=== PATIENT | female | born 1985 | race Two or more races ===

== ENCOUNTER 2018-09-13 07:30 | Inpatient (IN) | payer BC ==
[~2018-09-13] VITALS: Ht 172.7 cm; Wt 94.8 kg
[2018-09-24] MEDS ORDERED: NONE PER PT (09:37)
[2018-09-24 09:57] LABS: BASOPHILS # (AUTO) 0.02 x10^3/uL (0-0.1); BASOPHILS % (AUTO) 1 % (0-1); EOSINOPHILS # (AUTO) 0.12 x10^3/uL (0-0.4); EOSINOPHILS % (AUTO) 3 % (1-7); LYMPHOCYTES # (AUTO) 1.24 x10^3/uL (1-3.4); LYMPHOCYTES % (AUTO) 29 % (22-44); MD NO; MEAN CORPUSCULAR HEMOGLOBIN 31.9 pg (27.0-34.8); MEAN CORPUSCULAR HGB CONC 34.5 g/dL (32.4-35.8); MEAN CORPUSCULAR VOLUME 92.6 fL (80-100); MEAN PLATELET VOLUME 8.4 fL (7.4-10.4); MONOCYTES # (AUTO) 0.31 x10^3/uL (0.2-0.8); MONOCYTES % (AUTO) 7 % (2-9); NEUTROPHILS # (AUTO) 2.53 x10^3/uL (1.8-6.8); NEUTROPHILS % (AUTO) 60 % (42-75); PLATELET COUNT 326 x10^3/uL (130-400); RED BLOOD COUNT 4.18 x10^6/uL (3.82-5.3); RED CELL DISTRIBUTION WIDTH 11.8 % (9.6-15.2)
[2018-09-24 10:07] LABS: ALANINE AMINOTRANSFERASE 18 U/L (12-78); ALBUMIN 3.6 g/dL (3.4-5.0); ALKALINE PHOSPHATASE 76 U/L (45-117); ANION GAP 6 mmol/L (5-15); BILIRUBIN,TOTAL 0.7 mg/dL (0.2-1.0); CHLORIDE 110 mmol/L (98-107); CREATININE 0.65 mg/dL (0.55-1.02); TOTAL PROTEIN 7.3 g/dL (6.4-8.2)
[2018-09-26] MEDS ORDERED: LACTATED RINGERS 1,000 ML IV SCH (06:10)
[2018-09-26] MEDS ORDERED: SCOPOLAMINE PATCH, 1.5MG PATCH.TD72 TD ONE (07:00)
[2018-09-26] MEDS ORDERED: GABAPENTIN 300 MG CAPSULE PO ONE (07:00)
[2018-09-26] MEDS ORDERED: FLUORESCEIN SODIUM 500 MG/5 ML ONE (07:00)
[2018-09-26] MEDS ORDERED: FAMOTIDINE 20 MG TABLET PO ONE (07:00)
[2018-09-26] MEDS ORDERED: OXYcodone IR 5MG TABLET PO ONE (07:00)
[2018-09-26] MEDS ORDERED: PROPOFOL 10 MG/ML, 20ML ONE (07:11)
[2018-09-26] MEDS ORDERED: DEXAMETHASONE 4 MG/ML, 1ML ONE (07:11)
[2018-09-26] MEDS ORDERED: ROCURONIUM 10MG/ML,5ML ONE (07:11)
[2018-09-26] MEDS ORDERED: LIDOCAINE 2% 100MG/5ML SYRINGE ONE (07:11)
[2018-09-26] MEDS ORDERED: GLYCOPYRROLATE 0.2MG/1ML, 5ML ONE (07:11)
[2018-09-26] MEDS ORDERED: FENTANYL PF 250 MCG/5ML ONE (07:12)
[2018-09-26] MEDS ORDERED: MIDAZOLAM 1 MG/ML, 2ML ONE ×2 (07:12→09:11)
[2018-09-26] MEDS ORDERED: CEFAZOLIN 1,000 MG ONE (07:14)
[2018-09-26] MEDS ORDERED: PROCHLORPERAZINE 5 MG/ML, 2ML IV PRN (07:30)
[2018-09-26] MEDS ORDERED: hydrALAzine 20 MG/ML, 1ML IV PRN (07:30)
[2018-09-26] MEDS ORDERED: ONDANSETRON 2MG/ML, 2ML IV PRN ×2 (07:30→11:30)
[2018-09-26] MEDS ORDERED: MORPHINE SULFATE 4 MG/ML, 1ML IVPush PRN (07:30)
[2018-09-26] MEDS ORDERED: MIDAZOLAM 1 MG/ML, 2ML IV PRN (07:30)
[2018-09-26] MEDS ORDERED: KETOROLAC 30 MG/1 ML IV PRN (07:30)
[2018-09-26] MEDS ORDERED: OXYcodone 5 MG/5 ML ORAL.SOL UDC PO PRN (07:30)
[2018-09-26] MEDS ORDERED: METOCLOPRAMIDE 5 MG/ML, 2ML IV PRN (07:30)
[2018-09-26] MEDS ORDERED: LABETALOL 5MG/ML, 20ML IV PRN (07:30)
[2018-09-26] MEDS ORDERED: EPHEDRINE 50 MG/ML, 1ML IVPush PRN (07:30)
[2018-09-26] MEDS ORDERED: ALBUTEROL/IPRATROPIUM 2.5MG/0.5MG, 3 ML NPPB PRN (07:30)
[2018-09-26] MEDS ORDERED: MEPERIDINE/PF 25MG/0.5ML IVPush PRN (07:30)
[2018-09-26] MEDS ORDERED: EPHEDRINE 50 MG/ML, 1ML IM PRN (07:30)
[2018-09-26] MEDS ORDERED: OXYTOCIN 10 UNITS/ML, 1ML ONE (08:00)
[2018-09-26] MEDS ORDERED: VASOPRESSIN 20 UNIT/ML, 1ML ONE (08:02)
[2018-09-26] MEDS ORDERED: ONDANSETRON 2MG/ML, 2ML ONE (08:43)
[2018-09-26] MEDS: HYDROmorphone 2 MG/ML, 1ML IVPush PRN ×2 (09:56→10:05)
[2018-09-26] MEDS ORDERED: OXYcodone 5 MG/5 ML ORAL.SOL UDC ONE (09:57)
[2018-09-26] MEDS ORDERED: FENTANYL PF 100 MCG/2ML ONE (09:57)
[2018-09-26] MEDS ORDERED: HYDROmorphone 2 MG/ML, 1ML ONE (09:57)
[2018-09-26] MEDS: FENTANYL PF 100 MCG/2ML IV PRN ×2 (10:04→10:13)
[2018-09-26] MEDS ORDERED: KETOROLAC 30 MG/1 ML ONE ×2 (10:09→15:58)
[2018-09-26] MEDS ORDERED: MEPERIDINE/PF 25MG/ML,1ML ONE (10:19)
[2018-09-26 11:10] VITALS: BP 120/76
[2018-09-26] MEDS ORDERED: morphine SULFATE 10 MG/ML, 1ML IV PRN (11:30)
[2018-09-26] MEDS ORDERED: ACETAMINOPHEN 325 MG TABLET PO PRN (11:30)
[2018-09-26] MEDS ORDERED: BISACODYL 10 MG SUPP PR PRN (11:30)
[2018-09-26] MEDS ORDERED: D5%-LACTATED RINGERS 1,000 ML IV SCH (11:30)
[2018-09-26] MEDS ORDERED: ACETAMINOPHEN 650 MG SUPP PR PRN (11:30)
[2018-09-26 14:34] VITALS: BP 106/53
[2018-09-26 14:49] LABS: MD YES; MEAN CORPUSCULAR HEMOGLOBIN 31.3 pg (27.0-34.8); MEAN CORPUSCULAR HGB CONC 33.7 g/dL (32.4-35.8); MEAN CORPUSCULAR VOLUME 92.7 fL (80-100); MEAN PLATELET VOLUME 8.5 fL (7.4-10.4); PLATELET COUNT 315 x10^3/uL (130-400); RED CELL DISTRIBUTION WIDTH 12.3 % (9.6-15.2)
[2018-09-26 14:54] LABS: <PLATELET ESTIMATE> ADEQUATE; <PLT MORPHOLOGY> NORMAL PLT MORPH; <RBC MORPHOLOGY> NORMAL; BAND#(MANUAL) 0.81 x10^3/uL; BANDS%(MANUAL) 6 % (0-7); LYMPH#(MANUAL) 0.14 x10^3/uL (1-3.4); LYMPHS% (MANUAL) 1 % (22-44); MONOS#(MANUAL) 0.27 x10^3/uL (0.3-2.7); MONOS% (MANUAL) 2 % (2-9); SEG#(MANUAL) 12.29 x10^3/uL (1.8-6.8); SEGS% (MANUAL) 91 % (42-75)
[2018-09-26] MEDS ORDERED: IBUPROFEN 600 MG TABLET PO SCH (16:00)
[2018-09-26] MEDS: SIMETHICONE 80 MG CHEW TAB PO SCH ×2 (16:01→20:14)
[2018-09-26] MEDS: KETOROLAC 30 MG/1 ML IVPush SCH ×2 (16:01→21:58)
[2018-09-26 19:12] VITALS: BP 102/63
[2018-09-26] MEDS: DOCUSATE 100 MG CAPSULE PO SCH (20:14)
[2018-09-26] MEDS: SENNA/DOCUSATE TABLET PO SCH (20:14)
[2018-09-26] MEDS ORDERED: ZOLPIDEM 5MG TABLET PO PRN (21:00)
[2018-09-26 23:57] VITALS: BP 102/63
[2018-09-27 00:47] VITALS: BP 113/63
[2018-09-27 03:37] LABS: BASOPHILS # (AUTO) 0.03 x10^3/uL (0-0.1); BASOPHILS % (AUTO) 0 % (0-1); EOSINOPHILS % (AUTO) 0 % (1-7); LYMPHOCYTES # (AUTO) 1.26 x10^3/uL (1-3.4); LYMPHOCYTES % (AUTO) 12 % (22-44); MD NO; MEAN CORPUSCULAR HEMOGLOBIN 31.2 pg (27.0-34.8); MEAN CORPUSCULAR HGB CONC 33.5 g/dL (32.4-35.8); MEAN CORPUSCULAR VOLUME 93.2 fL (80-100); MEAN PLATELET VOLUME 8.4 fL (7.4-10.4); MONOCYTES # (AUTO) 0.81 x10^3/uL (0.2-0.8); MONOCYTES % (AUTO) 8 % (2-9); NEUTROPHILS # (AUTO) 8.69 x10^3/uL (1.8-6.8); NEUTROPHILS % (AUTO) 81 % (42-75); PLATELET COUNT 282 x10^3/uL (130-400); RED BLOOD COUNT 3.71 x10^6/uL (3.82-5.3); RED CELL DISTRIBUTION WIDTH 12.2 % (9.6-15.2)
[2018-09-27] MEDS: KETOROLAC 30 MG/1 ML IVPush SCH ×2 (04:02→09:36)
[2018-09-27 04:09] VITALS: BP 104/66
[2018-09-27 04:14] LABS: ANION GAP 7 mmol/L (5-15); CHLORIDE 109 mmol/L (98-107)
[2018-09-27] MEDS: OXYcodone/APAP 5/325MG TABLET PO PRN ×3 (05:15→20:38)
[2018-09-27 09:34] VITALS: BP 104/63
[2018-09-27] MEDS: DOCUSATE 100 MG CAPSULE PO SCH ×2 (09:36→20:38)
[2018-09-27] MEDS: SIMETHICONE 80 MG CHEW TAB PO SCH ×3 (09:36→20:38)
[2018-09-27] MEDS: D5%-LACTATED RINGERS 1,000 ML IV SCH ×2 (11:50→19:30)
[2018-09-27 13:42] VITALS: BP 101/60
[2018-09-27] MEDS: IBUPROFEN 600 MG TABLET PO SCH ×2 (17:57→20:38)
[2018-09-27 18:50] VITALS: BP 103/61
[2018-09-27] MEDS ORDERED: IBUP-1222 PO (20:14)
[2018-09-27] MEDS ORDERED: OXYC-302 PO (20:14)
[2018-09-27] MEDS ORDERED: DOCU-131 PO (20:16)
[2018-09-27] MEDS: SENNA/DOCUSATE TABLET PO SCH (20:38)
[2018-09-27 21:18] VITALS: BP 115/72
== END 2018-09-27 21:30 | disposition home or self-care (01) | DRG 743 ==
LOC: ORIP 09-26 05:39 → EDSTATUS 09-26 07:30 → 4NOR 09-26 11:05
PROVIDERS: ADMIT Obstetrics & Gynecology; ATTEND Obstetrics & Gynecology
PROC: 0UB50ZZ Excision of Right Fallopian Tube, Open Approach (ICD-10-PCS; 2018-09-26)
PROC: 0UB90ZZ Excision of Uterus, Open Approach (ICD-10-PCS; principal; 2018-09-26 07:30)
DX: D25.9 Leiomyoma of uterus, unspecified (principal); N85.4 Malposition of uterus; Z87.59 Personal history of other complications of pregnancy, childbirth and the puerperium; N83.8 Other noninflammatory disorders of ovary, fallopian tube and broad ligament; N83.291 Other ovarian cyst, right side
CPT/HCPCS: 36415; J7121; 80048; 80053; 84703; 85025; 88305; 93005; G0378; J0690; J1100; J1170; J1885; J2175; J2250; J2405; J2704; J3010; C1765; J2590; J7120

== ENCOUNTER → 2020-04-30 | Outpatient (CLI) | payer BC ==
[~2020-04-30] MED LIST: DENIES; DOCU-131 PO; IBUP-1222 PO; NONE PER PT; OXYC-302 PO
== END | disposition home or self-care (01) ==
LOC: RAD 17:14
PROVIDERS: ATTEND Obstetrics & Gynecology
DX: O00.90 Unspecified ectopic pregnancy without intrauterine pregnancy (principal); O34.80 Maternal care for other abnormalities of pelvic organs, unspecified trimester; N83.202 Unspecified ovarian cyst, left side
CPT/HCPCS: 76801

== ENCOUNTER 2020-05-01 13:30 | Day surgery (SDC) | payer BC ==
[~2020-05-01] VITALS: Ht 172.7 cm; Wt 88.7 kg
[~2020-05-01 13:30] MED LIST changes: -DENIES; +EPHEDRINE 50 MG/ML, 1ML IVPush PRN; +HYDROmorphone 1 MG/ML, 1ML INJ IVPush PRN; +LABETALOL 5MG/ML, 20ML IV PRN; +MEPERIDINE/PF 25MG/0.5ML IVPush PRN; +ONDANSETRON 2MG/ML, 2ML IVPush PRN; +OXYcodone 5 MG/5 ML ORAL.SOL UDC PO PRN; +PROMETHAZINE 25 MG/ML, 1ML IVPush PRN; +hydrALAzine 20 MG/ML, 1ML IV PRN
[2020-05-01 14:12] VITALS: BP 109/76
[2020-05-01] MEDS ORDERED: DENIES (14:12)
[2020-05-01] MEDS ORDERED: LACTATED RINGERS 1,000 ML IV SCH (14:30)
[2020-05-01] MEDS ORDERED: CHLORHEXIDINE 15 ML UDC MM ONE (14:30)
[2020-05-01] MEDS ORDERED: ACETAMINOPHEN 500 MG TABLET PO ONE (14:30)
[2020-05-01] MEDS ORDERED: MIDAZOLAM 1 MG/ML, 2ML ONE (16:11)
[2020-05-01] MEDS ORDERED: FENTANYL PF 250 MCG/5ML ONE (16:11)
[2020-05-01] MEDS ORDERED: ROCURONIUM 10MG/ML,5ML ONE (16:13)
[2020-05-01] MEDS ORDERED: PROPOFOL 10 MG/ML, 20ML ONE (16:13)
[2020-05-01] MEDS ORDERED: BUPIVACAINE/PF 0.25% ONE (16:20)
[2020-05-01] MEDS ORDERED: EPINEPHRINE 1 MG/ML, 1ML ONE (16:20)
[2020-05-01] MEDS ORDERED: HYDROmorphone 1 MG/ML, 1ML INJ IVPush PRN (16:30)
[2020-05-01] MEDS ORDERED: FENTANYL PF 100 MCG/2ML IV PRN (16:30)
[2020-05-01] MEDS ORDERED: hydrALAzine 20 MG/ML, 1ML IV PRN (16:30)
[2020-05-01] MEDS ORDERED: PROMETHAZINE 25 MG/ML, 1ML IVPush PRN (16:30)
[2020-05-01] MEDS ORDERED: LABETALOL 5MG/ML, 20ML IV PRN (16:30)
[2020-05-01] MEDS ORDERED: MEPERIDINE/PF 25MG/0.5ML IVPush PRN (16:30)
[2020-05-01] MEDS ORDERED: ONDANSETRON 2MG/ML, 2ML IVPush PRN (16:30)
[2020-05-01] MEDS ORDERED: OXYcodone 5 MG/5 ML ORAL.SOL UDC PO PRN (16:30)
[2020-05-01] MEDS ORDERED: DEXAMETHASONE 4 MG/ML, 1ML ONE (16:31)
[2020-05-01] MEDS ORDERED: CEFAZOLIN 1,000 MG ONE ×2 (16:53)
[2020-05-01] MEDS ORDERED: ONDANSETRON 2MG/ML, 2ML ONE (17:48)
[2020-05-01] MEDS ORDERED: FENTANYL PF 100 MCG/2ML ONE (18:03)
[2020-05-01] MEDS ORDERED: OXYcodone 5 MG/5 ML ORAL.SOL UDC ONE (18:03)
[2020-05-01] MEDS: FENTANYL PF 100 MCG/2ML IV PRN ×2 (18:11→18:16)
== END 2020-05-01 19:05 | disposition home or self-care (01) ==
LOC: OR 13:30
PROVIDERS: ATTEND Obstetrics & Gynecology
DX: O00.101 Right tubal pregnancy without intrauterine pregnancy (principal); K66.0 Peritoneal adhesions (postprocedural) (postinfection); Z3A.01 Less than 8 weeks gestation of pregnancy; Z98.890 Other specified postprocedural states
CPT/HCPCS: 59151; 87635; 88305; J0171; J0690; J1100; J2250; J2405; J2704; J3010; J7120